=== PATIENT | male | born 1955 | race Caucasian/White ===

== ENCOUNTER 2019-08-02 06:46 | Day surgery (SDC) | payer OTHER ==
[~2019-08-02] VITALS: Ht 175.3 cm; Wt 72.6 kg
[2019-08-02 07:07] VITALS: BP 135/87
[2019-08-02 11:32] VITALS: BP 133/87
== END 2019-08-02 10:50 | disposition home or self-care (01) ==
LOC: DS 06:46 → GI 08:00 → OR 08:00 → DS 10:50
DX: Z12.11 Encounter for screening for malignant neoplasm of colon (principal); K57.30 Diverticulosis of large intestine without perforation or abscess without bleeding; K64.8 Other hemorrhoids; F17.210 Nicotine dependence, cigarettes, uncomplicated; F12.90 Cannabis use, unspecified, uncomplicated; Z85.828 Personal history of other malignant neoplasm of skin
CPT/HCPCS: 45378; J1200; J1610; J2250; J2310; J3010; J3490